=== PATIENT | female | born 2005 | race Caucasian/White ===

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

== ENCOUNTER 2024-06-15 14:36 | Emergency (ER) | payer OTHER ==
[~2024-06-15] VITALS: Ht 170.1 cm; Wt 86.2 kg
[~2024-06-15 14:36] MED LIST changes: +AMINOPHYLLIN200 MG PO; +AMOX-CLAV 875-1 EACH PO; +AMOXICILLIN500 M2 PO; +AMOXICILLIN500 MG PO; +AMOXIL250 MG/5 M PO; +AMOXIL400 MG/5 M PO; +ATARAX10 MG/5 ML PO; +AURALGAN 15 ML15 ML OT; +CEFUROXIME AXE500 MG PO; +CEPHALEXIN500 M1 PO; +CIPRO500 MG PO; +CIPRODEX 0.3%-7.5 ML OT; +CLARITIN5 MG/5 ML PO; +DICLEGIS DR 101 EACH PO; +DICYCLOMINE HYD20 MG PO; +IBUPROFEN600 MG PO; +KENALOG0.1% TP; +LIDEX0.05% T; +MEDROL DOSEPAK4 MG PO; +MOTRIN 600 MG E4 TAB PO; +MOTRIN CHI100 MG/51 PO; +MOTRIN400 MG PO; +NKHM; +ONDANSETRON HYDR8 MG PO; +Ondansetron4 MG PO; +PREDNISONE10 MG PO; +PREDNISONE20 M1 PO; +PREDNISONE50 MG PO; +PRELONE5 MG/5 ML PO; +PRENATABS RX T1 EACH PO; +PRENATAL VITAM1 EAC4 PO; +REGLAN10 M1 PO; +RITE AID LICE T59 ML TP; +SPRINTEC 35 MCG1 TA1 PO; +TAMIFLU30 MG PO; +TOBREX OPHTH S2.5 ML OPH; +TYLENOL W/ CODEI5 ML PO; +TYLENOL160 MG/5 M PO; +VISTARIL25 MG PO; +XULANE PATCH1 EACH TD; +ZOFRAN ODT4 MG SL; +ZOFRAN4 MG PO; +ZOFRAN4 MG/5 ML PO
[2024-06-15] MEDS ORDERED: Metoclopramide Hydrochloride 10 MG/2 ML VIAL IV ONE (15:05)
[2024-06-15] MEDS ORDERED: SODIUM CHLORIDE 0.9% 1,000 ML IV ONE (15:05)
[2024-06-15] MEDS ORDERED: diphenhydrAMINE hydrochloride 50 MG/ML VIAL IV ONE (15:05)
[2024-06-15 15:46] LABS: BASO % 0.4 % (0.0-1.0); EOS % 0.1 % (1.0-4.0); HEMATOCRIT 42.7 % (37.0-47.0); MEAN CELL VOLUME 86.4 fl (81.0-99.0); MEAN CORPUSCULAR HGB 28.5 pg (27.0-31.0); MONO # 0.7 10*3/uL (0.1-1.0); MONO % 6.5 % (3.0-9.0); NEUT # 9.1 10*3/uL (2.3-7.9); NEUT % 82.2 % (47.0-73.0); NUCLEATED RED BLOOD CELL 0.1 10*3/uL (0.0-0.0); NUCLEATED RED BLOOD CELL 0.6 % (0.0-0.0); PLATELET COUNT AUTOMATED 363 10*3/uL (130-400); RED BLOOD COUNT 4.94 10*6/uL (4.10-5.10); RED CELL DISTRI WIDTH 13.5 % (0-14.5); WHITE BLOOD COUNT 11.1 10*3/uL (4.8-10.8)
[2024-06-15 15:54] LABS: BILIRUBIN Negative (Negative); BLOOD Negative (Negative); CLARITY Cloudy (Clear); COLOR Yellow (Yellow); GLUCOSE Negative (Negative); KETONE Negative (Negative); LEUKO ESTERASE 1+ (Negative); NITRITE Negative (Negative); SPECIFIC GRAVITY 1.025 (1.001-1.030)
[2024-06-15 16:08] LABS: BACTERIA 1+; MUCOUS TRACE; RBC 0-2 rbc/hpf (0-2)
[2024-06-15 16:11] LABS: ALKALINE PHOSPHATASE 78 U/L (46-116); BUN 9 mg/dl (9-23); CHLORIDE 98 mmol/L (98-107); LIPASE 55 U/L (12-53); POTASSIUM 4.6 mmol/L (3.4-5.1); SGPT/ALT 46 U/L (5-49); TOTAL PROTEIN 7.3 gm/dL (6.0-8.0)
[2024-06-15] MEDS ORDERED: Promethazine Hydrochloride 25 MG/ML VIAL IM ONE (16:55)
[2024-06-15] MEDS ORDERED: cefTRIAXone Sodium 1 GM/10 ML SYR IV ONE (17:20)
[2024-06-15] MEDS ORDERED: CIPRO500 MG PO (18:09)
[2024-06-15] MEDS ORDERED: Phenergan25 MG PO (18:09)
== END 2024-06-15 18:13 | disposition home or self-care (01) ==
LOC: ED 14:36 → EDBD 14:38 → ED 18:13
PROVIDERS: Nurse Practitioner Family
DX: R11.2 Nausea with vomiting, unspecified (principal); N39.0 Urinary tract infection, site not specified; E86.0 Dehydration; J45.909 Unspecified asthma, uncomplicated; Z79.899 Other long term (current) drug therapy; Z90.89 Acquired absence of other organs

== ENCOUNTER 2024-10-11 11:35 | Emergency (ER) | payer OTHER ==
[~2024-10-11] VITALS: Ht 172.7 cm; Wt 81.6 kg
[~2024-10-11 11:35] MED LIST changes: +Phenergan25 MG PO
[2024-10-11] MEDS ORDERED: NAPROSYN500 MG PO (15:02)
[2024-10-11] MEDS ORDERED: ZANAFLEX4 MG PO (15:02)
== END 2024-10-11 15:06 | disposition home or self-care (01) ==
LOC: ED 11:35
DX: S43.401A Unspecified sprain of right shoulder joint, initial encounter (principal); J45.909 Unspecified asthma, uncomplicated; Z79.899 Other long term (current) drug therapy; Z90.89 Acquired absence of other organs; X58.XXXA Exposure to other specified factors, initial encounter; Y93.72 Activity, wrestling; Y92.89 Other specified places as the place of occurrence of the external cause; Y99.8 Other external cause status

== ENCOUNTER 2024-11-13 13:24 | Emergency (ER) | payer OTHER ==
[~2024-11-13] VITALS: Ht 170.1 cm; Wt 86.2 kg
[~2024-11-13 13:24] MED LIST changes: +NAPROSYN500 MG PO; +ZANAFLEX4 MG PO
[2024-11-13] MEDS ORDERED: SODIUM CHLORIDE 0.9% 1,000 ML IV ONE (13:50)
[2024-11-13] MEDS ORDERED: Ondansetron Hydrochloride 4 MG/2 ML VIAL IV ONE (13:50)
[2024-11-13] MEDS ORDERED: Promethazine Hydrochloride 25 MG/ML VIAL IM ONE (14:10)
[2024-11-13 14:21] LABS: BASO # 0.0 10*3/uL (0.0-0.1); BASO % 0.3 % (0.0-1.0); EOS # 0.0 10*3/uL (0.0-0.4); EOS % 0.0 % (1.0-4.0); MEAN CELL VOLUME 92.7 fl (81.0-99.0); MEAN CORPUSCULAR HGB 30.1 pg (27.0-31.0); MEAN PLATELET VOLUME 9.6 fl (9.6-12.3); MONO # 0.6 10*3/uL (0.1-1.0); MONO % 4.1 % (3.0-9.0); NEUT # 13.9 10*3/uL (2.3-7.9); NEUT % 88.2 % (47.0-73.0); NUCLEATED RED BLOOD CELL 0.0 % (0.0-0.0); NUCLEATED RED BLOOD CELL 0.0 10*3/uL (0.0-0.0); PLATELET COUNT AUTOMATED 301 10*3/uL (130-400); RED CELL DISTRI WIDTH 12.6 % (0-14.5)
[2024-11-13 14:29] LABS: BILIRUBIN Negative (Negative); BLOOD Negative (Negative); CLARITY Clear (Clear); COLOR Yellow (Yellow); KETONE 3+ (Negative); LEUKO ESTERASE 1+ (Negative); NITRITE Negative (Negative); PH 7.0 (4.5-8.0); SPECIFIC GRAVITY >= 1.030 (1.001-1.030); UROBILINOGEN 1.0 E.U./dl (0.0-1.0)
[2024-11-13 14:36] LABS: URINE AMPHETAMINES Negative (1000ng/ml); URINE BARBITURATES Negative (200ng/ml); URINE BENZODIAZEPINES Negative (200ng/ml); URINE CANNABINOIDS (THC) Positive (50ng/ml); URINE COCAINE Negative (300ng/ml); URINE METHADONE Negative (300ng/ml); URINE OPIATES Negative (300ng/ml); URINE PHENCYCLIDINE Negative (25ng/ml)
[2024-11-13 14:42] LABS: EPITHELIAL CELLS 16-20
[2024-11-13 14:43] LABS: BACTERIA 2+
[2024-11-13 14:52] LABS: BUN 11 mg/dl (9-23); SGPT/ALT 28 U/L (5-49)
[2024-11-13] MEDS ORDERED: CEPHALEXIN500 M1 PO (16:02)
[2024-11-13] MEDS ORDERED: diphenhydrAMINE hydrochloride 50 MG/ML VIAL IV ONE (16:05)
[2024-11-13] MEDS ORDERED: Metoclopramide Hydrochloride 10 MG/2 ML VIAL IV ONE (16:05)
== END 2024-11-13 18:00 | disposition home or self-care (01) ==
LOC: ED 13:24
PROVIDERS: Nurse Practitioner Family
DX: N39.0 Urinary tract infection, site not specified (principal); R11.2 Nausea with vomiting, unspecified; Z32.01 Encounter for pregnancy test, result positive; Z90.89 Acquired absence of other organs

== ENCOUNTER 2024-11-15 05:49 | Emergency (ER) | payer OTHER ==
[~2024-11-15] VITALS: Ht 172.7 cm; Wt 90.7 kg
[2024-11-15] MEDS ORDERED: Ondansetron Hydrochloride 4 MG/2 ML VIAL IV ONE (06:05)
[2024-11-15] MEDS ORDERED: SODIUM CHLORIDE 0.9% 1,000 ML IV ONE (06:05)
[2024-11-15] MEDS ORDERED: diphenhydrAMINE hydrochloride 50 MG/ML VIAL IV ONE (07:25)
[2024-11-15] MEDS ORDERED: PYRIDOXINE 25 MG PO ONE (07:25)
[2024-11-15] MEDS ORDERED: Promethazine Hydrochloride 25 MG/ML VIAL IV ONE (07:35)
[2024-11-15] MEDS ORDERED: PYRIDOXINE 50 MG TAB PO ONE (07:35)
[2024-11-15] MEDS ORDERED: Metoclopramide Hydrochloride 10 MG/2 ML VIAL IV ONE (08:20)
== END 2024-11-15 06:59 | disposition home or self-care (01) ==
LOC: ED 05:49
DX: O21.0 Mild hyperemesis gravidarum (principal); Z3A.01 Less than 8 weeks gestation of pregnancy

== ENCOUNTER 2024-11-30 12:24 | Emergency (ER) | payer OTHER ==
[~2024-11-30] VITALS: Ht 170.1 cm; Wt 81.6 kg
[2024-11-30] MEDS ORDERED: diphenhydrAMINE hydrochloride 50 MG/ML VIAL IV ONE (12:45)
[2024-11-30] MEDS ORDERED: Metoclopramide Hydrochloride 10 MG/2 ML VIAL IV ONE (12:45)
[2024-11-30] MEDS ORDERED: SODIUM CHLORIDE 0.9% 1,000 ML IV ONE (12:45)
[2024-11-30] MEDS ORDERED: FAMOTIDINE 50 ML IV ONE (12:45)
[2024-11-30 13:08] LABS: BASO # 0.0 10*3/uL (0.0-0.1); BASO % 0.3 % (0.0-1.0); EOS # 0.0 10*3/uL (0.0-0.4); EOS % 0.0 % (1.0-4.0); MEAN CELL VOLUME 90.6 fl (81.0-99.0); MEAN CORPUSCULAR HGB 29.1 pg (27.0-31.0); MEAN PLATELET VOLUME 8.8 fl (9.6-12.3); MONO # 0.9 10*3/uL (0.1-1.0); MONO % 6.9 % (3.0-9.0); NEUT # 9.9 10*3/uL (2.3-7.9); NEUT % 78.1 % (47.0-73.0); NUCLEATED RED BLOOD CELL 0.0 % (0.0-0.0); NUCLEATED RED BLOOD CELL 0.0 10*3/uL (0.0-0.0); PLATELET COUNT AUTOMATED 377 10*3/uL (130-400); RED CELL DISTRI WIDTH 12.8 % (0-14.5)
[2024-11-30 13:39] LABS: BUN 12 mg/dl (9-23)
[2024-11-30 13:45] LABS: BETA-HCG, TUMOR MARKER 44345.0 mIU/mL (0-10)
[2024-11-30 13:58] LABS: BILIRUBIN Negative (Negative); BLOOD Negative (Negative); CLARITY Turbid (Clear); COLOR Yellow (Yellow); KETONE Trace (Negative); LEUKO ESTERASE 1+ (Negative); NITRITE Negative (Negative); PH 6.0 (4.5-8.0); SPECIFIC GRAVITY >= 1.030 (1.001-1.030); UROBILINOGEN 1.0 E.U./dl (0.0-1.0)
[2024-11-30 14:32] LABS: BACTERIA 1+; MUCOUS 2+; RBC 0-2 rbc/hpf (0-2); WBC 16-20 wbc/hpf (0-5)
== END 2024-11-30 15:13 | disposition home or self-care (01) ==
LOC: ED 12:24
PROVIDERS: Emergency Medicine
DX: O23.41 Unspecified infection of urinary tract in pregnancy, first trimester (principal); N39.0 Urinary tract infection, site not specified; O26.891 Other specified pregnancy related conditions, first trimester; R10.2 Pelvic and perineal pain; O21.9 Vomiting of pregnancy, unspecified; O99.511 Diseases of the respiratory system complicating pregnancy, first trimester; J45.909 Unspecified asthma, uncomplicated; Z3A.01 Less than 8 weeks gestation of pregnancy

== ENCOUNTER 2024-12-24 07:46 | Emergency (ER) | payer OTHER ==
[~2024-12-24] VITALS: Ht 172.7 cm; Wt 86.2 kg
[2024-12-24] MEDS ORDERED: ONDANSETRON HYDR4 MG PO (08:01)
[2024-12-24] MEDS ORDERED: SODIUM CHLORIDE 0.9% 1,000 ML IV ONE (08:10)
[2024-12-24] MEDS ORDERED: diphenhydrAMINE hydrochloride 50 MG/ML VIAL IV ONE (08:10)
[2024-12-24] MEDS ORDERED: Metoclopramide Hydrochloride 10 MG/2 ML VIAL IV ONE (08:10)
[2024-12-24] MEDS ORDERED: Ondansetron Hydrochloride 4 MG/2 ML VIAL IV ONE (08:10)
[2024-12-24 08:26] LABS: BASO # 0.0 10*3/uL (0.0-0.1); BASO % 0.2 % (0.0-1.0); EOS # 0.0 10*3/uL (0.0-0.4); EOS % 0.2 % (1.0-4.0); MEAN CELL VOLUME 89.1 fl (81.0-99.0); MEAN CORPUSCULAR HGB 30.3 pg (27.0-31.0); MEAN PLATELET VOLUME 8.8 fl (9.6-12.3); MONO # 0.5 10*3/uL (0.1-1.0); MONO % 3.7 % (3.0-9.0); NEUT # 11.0 10*3/uL (2.3-7.9); NEUT % 87.9 % (47.0-73.0); NUCLEATED RED BLOOD CELL 0.0 % (0.0-0.0); NUCLEATED RED BLOOD CELL 0.0 10*3/uL (0.0-0.0); PLATELET COUNT AUTOMATED 335 10*3/uL (130-400); RED CELL DISTRI WIDTH 13.3 % (0-14.5)
[2024-12-24 08:46] LABS: BILIRUBIN Negative (Negative); BLOOD Negative (Negative); CLARITY Cloudy (Clear); COLOR Yellow (Yellow); KETONE 4+ (Negative); LEUKO ESTERASE 1+ (Negative); NITRITE Negative (Negative); PH 7.5 (4.5-8.0); SPECIFIC GRAVITY >= 1.030 (1.001-1.030); UROBILINOGEN 1.0 E.U./dl (0.0-1.0)
[2024-12-24 08:48] LABS: BUN 8 mg/dl (9-23); SGPT/ALT 17 U/L (5-49)
[2024-12-24 08:54] LABS: BACTERIA 1+; MUCOUS 2+
[2024-12-24] MEDS ORDERED: COMPAZINE10 M1 PO (10:14)
== END 2024-12-24 10:27 | disposition home or self-care (01) ==
LOC: ED 07:46
PROVIDERS: Emergency Medicine
DX: O21.0 Mild hyperemesis gravidarum (principal); Z79.899 Other long term (current) drug therapy; Z90.89 Acquired absence of other organs; Z90.49 Acquired absence of other specified parts of digestive tract; Z3A.22 22 weeks gestation of pregnancy

== ENCOUNTER 2025-01-02 13:11 | Emergency (ER) | payer OTHER ==
[~2025-01-02] VITALS: Ht 172.7 cm; Wt 86.2 kg
[~2025-01-02 13:11] MED LIST changes: +COMPAZINE10 M1 PO; +ONDANSETRON HYDR4 MG PO
[2025-01-02] MEDS ORDERED: PRENATA CHEWAB1 EACH PO (13:25)
[2025-01-02] MEDS ORDERED: Metoclopramide Hydrochloride 10 MG/2 ML VIAL IV ONE (13:35)
[2025-01-02] MEDS ORDERED: SODIUM CHLORIDE 0.9% 1,000 ML IV ONE (13:35)
[2025-01-02] MEDS ORDERED: FAMOTIDINE 50 ML IV ONE (13:35)
[2025-01-02] MEDS ORDERED: diphenhydrAMINE hydrochloride 50 MG/ML VIAL IV ONE (13:35)
[2025-01-02] MEDS ORDERED: ACETAMINOPHEN 325 MG TAB PO ONE (13:35)
[2025-01-02 14:00] LABS: BASO # 0.1 10*3/uL (0.0-0.1); BASO % 0.3 % (0.0-1.0); EOS # 0.0 10*3/uL (0.0-0.4); EOS % 0.1 % (1.0-4.0); MEAN CELL VOLUME 88.8 fl (81.0-99.0); MEAN CORPUSCULAR HGB 29.8 pg (27.0-31.0); MEAN PLATELET VOLUME 8.8 fl (9.6-12.3); MONO # 0.8 10*3/uL (0.1-1.0); MONO % 4.8 % (3.0-9.0); NEUT # 13.1 10*3/uL (2.3-7.9); NEUT % 83.0 % (47.0-73.0); NUCLEATED RED BLOOD CELL 0.0 % (0.0-0.0); NUCLEATED RED BLOOD CELL 0.0 10*3/uL (0.0-0.0); PLATELET COUNT AUTOMATED 422 10*3/uL (130-400); RED CELL DISTRI WIDTH 14.0 % (0-14.5)
[2025-01-02 14:17] LABS: BILIRUBIN Negative (Negative); BLOOD Negative (Negative); CLARITY Turbid (Clear); COLOR Yellow (Yellow); KETONE 4+ (Negative); LEUKO ESTERASE 2+ (Negative); NITRITE Negative (Negative); PH 8.0 (4.5-8.0); SPECIFIC GRAVITY 1.025 (1.001-1.030); UROBILINOGEN 1.0 E.U./dl (0.0-1.0)
[2025-01-02 14:28] LABS: BACTERIA 3+; EPITHELIAL CELLS 21-30; MUCOUS TRACE
[2025-01-02 15:04] LABS: BUN < 5 mg/dl (9-23)
== END 2025-01-02 16:01 | disposition home or self-care (01) ==
LOC: ED 13:11
PROVIDERS: Emergency Medicine
DX: O21.8 Other vomiting complicating pregnancy (principal); O23.41 Unspecified infection of urinary tract in pregnancy, first trimester; O99.511 Diseases of the respiratory system complicating pregnancy, first trimester; J45.909 Unspecified asthma, uncomplicated; Z90.49 Acquired absence of other specified parts of digestive tract; Z90.89 Acquired absence of other organs; Z3A.12 12 weeks gestation of pregnancy

== ENCOUNTER 2025-01-26 07:57 | Emergency (ER) | payer OTHER ==
[~2025-01-26] VITALS: Ht 170.1 cm; Wt 86.2 kg
[~2025-01-26 07:57] MED LIST changes: +PRENATA CHEWAB1 EACH PO
[2025-01-26] MEDS ORDERED: SODIUM CHLORIDE 0.9% 1,000 ML IV ONE (08:15)
[2025-01-26] MEDS ORDERED: Metoclopramide Hydrochloride 10 MG/2 ML VIAL IV ONE (08:15)
[2025-01-26] MEDS ORDERED: diphenhydrAMINE hydrochloride 50 MG/ML VIAL IV ONE (08:15)
[2025-01-26 08:31] LABS: BASO # 0.0 10*3/uL (0.0-0.1); BASO % 0.3 % (0.0-1.0); EOS # 0.0 10*3/uL (0.0-0.4); EOS % 0.0 % (1.0-4.0); MEAN CELL VOLUME 91.4 fl (81.0-99.0); MEAN CORPUSCULAR HGB 31.0 pg (27.0-31.0); MEAN PLATELET VOLUME 8.9 fl (9.6-12.3); MONO # 1.0 10*3/uL (0.1-1.0); MONO % 6.1 % (3.0-9.0); NEUT # 12.3 10*3/uL (2.3-7.9); NEUT % 78.8 % (47.0-73.0); NUCLEATED RED BLOOD CELL 0.0 % (0.0-0.0); NUCLEATED RED BLOOD CELL 0.0 10*3/uL (0.0-0.0); PLATELET COUNT AUTOMATED 423 10*3/uL (130-400); RED CELL DISTRI WIDTH 14.4 % (0-14.5)
[2025-01-26 08:32] LABS: BILIRUBIN Negative (Negative); BLOOD Negative (Negative); CLARITY Cloudy (Clear); COLOR Yellow (Yellow); KETONE 2+ (Negative); LEUKO ESTERASE 2+ (Negative); NITRITE Negative (Negative); PH 6.5 (4.5-8.0); SPECIFIC GRAVITY 1.020 (1.001-1.030); UROBILINOGEN 1.0 E.U./dl (0.0-1.0)
[2025-01-26 08:51] LABS: BACTERIA 3+; EPITHELIAL CELLS 16-20; MUCOUS 4+; WBC 21-30 wbc/hpf (0-5)
[2025-01-26 08:55] LABS: BUN 7 mg/dl (9-23); SGPT/ALT 23 U/L (5-49)
[2025-01-26] MEDS ORDERED: CEPHALEXIN500 M1 PO (09:25)
[2025-01-26] MEDS ORDERED: REGLAN10 M1 PO (09:25)
== END 2025-01-26 09:40 | disposition home or self-care (01) ==
LOC: ED 07:57
PROVIDERS: Emergency Medicine
DX: O23.42 Unspecified infection of urinary tract in pregnancy, second trimester (principal); N39.0 Urinary tract infection, site not specified; O21.9 Vomiting of pregnancy, unspecified; O99.612 Diseases of the digestive system complicating pregnancy, second trimester; A08.4 Viral intestinal infection, unspecified; Z3A.15 15 weeks gestation of pregnancy; Z90.89 Acquired absence of other organs; Z90.49 Acquired absence of other specified parts of digestive tract

== ENCOUNTER 2025-02-07 08:11 | Emergency (ER) | payer OTHER ==
[~2025-02-07] VITALS: Ht 170.1 cm; Wt 86.2 kg
[2025-02-07] MEDS ORDERED: Ondansetron Hydrochloride 4 MG/2 ML VIAL IV ONE (08:45)
[2025-02-07] MEDS ORDERED: SODIUM CHLORIDE 0.9% 1,000 ML IV ONE (08:45)
[2025-02-07 09:28] LABS: BILIRUBIN Negative (Negative); BLOOD Negative (Negative); CLARITY Clear (Clear); COLOR Yellow (Yellow); KETONE 4+ (Negative); LEUKO ESTERASE Negative (Negative); NITRITE Negative (Negative); PH 7.0 (4.5-8.0); SPECIFIC GRAVITY >= 1.030 (1.001-1.030); UROBILINOGEN 1.0 E.U./dl (0.0-1.0)
[2025-02-07 09:29] LABS: BASO # 0.0 10*3/uL (0.0-0.1); BASO % 0.1 % (0.0-1.0); EOS # 0.0 10*3/uL (0.0-0.4); EOS % 0.0 % (1.0-4.0); MEAN CELL VOLUME 93.3 fl (81.0-99.0); MEAN CORPUSCULAR HGB 30.6 pg (27.0-31.0); MEAN PLATELET VOLUME 9.0 fl (9.6-12.3); MONO # 0.6 10*3/uL (0.1-1.0); MONO % 4.2 % (3.0-9.0); NEUT # 11.7 10*3/uL (2.3-7.9); NEUT % 86.6 % (47.0-73.0); NUCLEATED RED BLOOD CELL 0.0 % (0.0-0.0); NUCLEATED RED BLOOD CELL 0.0 10*3/uL (0.0-0.0); PLATELET COUNT AUTOMATED 328 10*3/uL (130-400); RED CELL DISTRI WIDTH 13.8 % (0-14.5)
[2025-02-07 09:45] LABS: BUN 6 mg/dl (9-23); SGPT/ALT 17 U/L (5-49)
[2025-02-07 09:51] LABS: BACTERIA 1+; MUCOUS 2+
[2025-02-07] MEDS ORDERED: Ondansetron4 MG PO ×2 (11:37→11:51)
== END 2025-02-07 11:50 | disposition home or self-care (01) ==
LOC: ED 08:11
PROVIDERS: Student in an Organized Health Care Education/Training Program
DX: O21.8 Other vomiting complicating pregnancy (principal); O99.512 Diseases of the respiratory system complicating pregnancy, second trimester; J45.909 Unspecified asthma, uncomplicated; Z90.89 Acquired absence of other organs; Z90.49 Acquired absence of other specified parts of digestive tract; Z3A.17 17 weeks gestation of pregnancy